=== PATIENT | female | born 1990 | race Caucasian/White ===

== ENCOUNTER 2017-02-24 14:12 | Emergency (ER) | payer BC ==
[~2017-02-24] VITALS: Ht 170.2 cm; Wt 69.5 kg
[2017-02-24 14:17] VITALS: TEMP 36.7; Ht 170.2 cm; Wt 69.5 kg
--- NOTE | 2017-02-24 14:37 | EMERGENCY ROOM VISIT NOTE ---
History Report prepared by Shakila: Chaitanya Crowe Under the Supervision of: Dr. Linda uDnn D.O. First contact with patient: 14:21 Chief Complaint: REFERRED BY DOCTOR Stated Complaint: CHEST PAIN, TROUBLE BREATHING, LEFT ARM NUMB History of Present Illness The patient is a 27 year old female who presents to the Emergency Room with complaints of constant left sided chest pain that has been occurring since 0900. She describes the pain as sharp and stabbing and rates her pain as an 8/ 10 in severity. The patient states that she was fine when she woke up until about 0900. She states that she started to experience left sided chest pain, which she denies radiating to her back. The patient states that she then started to experiencing a tingling, weak, and heavy feeling in her left arm. She describes the arm symptoms as "dull". She states that she started to experience shortness of breath, which she states is painful whenever she breathes. The patient states that she went to her PCP who reported that she should report to the ED. The patient admits that she took Tums for her symptoms , but denies any relief of symptoms. She admits to a history of mild acid reflux and states that her current symptoms are not similar to her acid reflux symptom. The patient denies having these symptoms in the past. She admits that she had an interview today at 1430, but denies feeling stressed or anxious. The patient reports that she has a history of PCOS and admits to regularly taking control pills. She denies a family history of heart problems. The patient denies any recent travel, cough, cold, flu, fevers, chills, change in severity with position, nausea, dizziness, lightheadedness, edema to her lower extremities, rash, change in bowel movements, and change in urine. Source of History: patient Onset: 0900 this morning Position: chest (left) Symptom Intensity: 8/10 Quality: sharp, stabbing Timing: constant Associated Symptoms: + SOB, + weakness, + numbness, No fevers, No chills, No cough, No nausea, No back pain, No urinary symptoms, No rash Review of Systems See HPI for pertinent positives & negatives. A total of 10 systems reviewed and were otherwise negative. Past Medical & Surgical Medical Problems: (1) Acid reflux (2) PCOS (polycystic ovarian syndrome) Family History PCOS Social History Smoking Status: Never Smoker Housing Status: lives with significant other Occupation Status: employed Current/Historical Medications Scheduled Control Pills ( Control Pills), 1 TAB PO DAILY Allergies Coded Allergies: [place] (Unverified Allergy, Unknown, THROAT CLOSING, 02/24/17) Physical Exam Vital Signs Date Time Temp Pulse Resp B/P (MAP) Pulse Ox O2 Delivery O2 Flow Rate FiO2 02/24/17 17:22 79 125/75 98 02/24/17 16:22 96 153/98 100 02/24/17 14:30 95 02/24/17 14:17 36.7 88 20 148/95 100 Room Air Physical Exam GENERAL: alert, well appearing, well nourished, no distress, non-toxic EYE EXAM: normal conjunctiva, PERRL and EOM's grossly intact OROPHARYNX: no exudate, no erythema, lips, buccal mucosa, and tongue normal and mucous membranes are moist NECK: supple, no nuchal rigidity, no adenopathy, non-tender LUNGS: Clear to auscultation. Normal chest wall mechanics CHEST: Reproducible left chest wall tenderness. HEART: Tachycardic. no murmurs, S1 normal and S2 normal ABDOMEN: abdomen soft, non-tender, normo-active bowel sounds, no masses, no rebound or guarding. BACK: Back is symmetrical on inspection and there is no deformity, no midline tenderness, no CVA tenderness. SKIN: no rashes and no bruising UPPER EXTREMITIES: upper extremities are grossly normal. LOWER EXTREMITIES: No pitting edema. NEURO EXAM: Normal sensorium, cranial nerves II-XII grossly intact, normal speech, no gross weakness of arms, no gross weakness of legs. Subjective altered sensation to upper extremities. No ataxia or drift. Equal strength bilaterally. Medical Decision & Procedures ER Provider Diagnostic Interpretation: Radiology results have been interpreted by the radiologist and reviewed by me. CHEST ONE VIEW PORTABLE CLINICAL HISTORY: Chest pain. Dyspnea. COMPARISON STUDY: No previous studies for comparison. FINDINGS: Lung volumes are normal. No pneumothorax or pleural effusion is present. Pulmonary vascularity is normal. Cardiomediastinal silhouette is normal. Apparent left basilar opacity is likely within normal limits. IMPRESSION: No acute cardiopulmonary findings. Electronically signed by: Juan M Gorman M.D. 02/24/2017 3:25 PM Dictated Date/Time: 02/24/2017 3:24 PM Laboratory Results 02/24/17 14:45 Red Blood Count 4.41, Mean Corpuscular Volume 90.9, Mean Corpuscular Hemoglobin 30.8, Mean Corpuscular Hemoglobin Concent 33.9, Mean Platelet Volume 10.3, Neutrophils (%) (Auto) 82.0, Lymphocytes (%) (Auto) 12.6, Monocytes (%) (Auto) 4.4, Eosinophils (%) (Auto) 0.6, Basophils (%) (Auto) 0.2, Neutrophils # (Auto) 7.57, Lymphocytes # (Auto) 1.17, Monocytes # (Auto) 0.41, Eosinophils # (Auto) 0.06, Basophils # (Auto) 0.02 02/24/17 14:45 Test 02/24/17 14:45 White Blood Count 9.25 K/uL (4.8-10.8) Red Blood Count 4.41 M/uL (4.2-5.4) Hemoglobin 13.6 g/dL (12.0-16.0) Hematocrit 40.1 % (37-47) Mean Corpuscular Volume 90.9 fL (80-100) Mean Corpuscular Hemoglobin 30.8 pg (25-34) Mean Corpuscular Hemoglobin Concent 33.9 g/dl (32-36) Platelet Count 205 K/uL (130-400) Mean Platelet Volume 10.3 fL (7.4-10.4) Neutrophils (%) (Auto) 82.0 % Lymphocytes (%) (Auto) 12.6 % Monocytes (%) (Auto) 4.4 % Eosinophils (%) (Auto) 0.6 % Basophils (%) (Auto) 0.2 % Neutrophils # (Auto) 7.57 K/uL (1.4-6.5) Lymphocytes # (Auto) 1.17 K/uL (1.2-3.4) Monocytes # (Auto) 0.41 K/uL (0.11-0.59) Eosinophils # (Auto) 0.06 K/uL (0-0.5) Basophils # (Auto) 0.02 K/uL (0-0.2) RDW Standard Deviation 41.1 fL (36.4-46.3) RDW Coefficient of Variation 12.3 % (11.5-14.5) Immature Granulocyte % (Auto) 0.2 % Immature Granulocyte # (Auto) 0.02 K/uL (0.00-0.02) Prothrombin Time 11.0 SECONDS (9.0-12.0) Prothromb Time International Ratio 1.0 (0.9-1.1) D-Dimer < 190 ug/L FEU (0-500) Anion Gap 8.0 mmol/L (3-11) Est Creatinine Clear Calc Drug Dose 104.6 ml/min Estimated GFR () 118.8 Estimated GFR (Non- 102.5 BUN/Creatinine Ratio 13.6 (10-20) Calcium Level 9.2 mg/dl (8.5-10.1) Magnesium Level 2.0 mg/dl (1.8-2.4) Total Bilirubin 0.3 mg/dl (0.2-1) Aspartate Amino Transf (AST/SGOT) 14 U/L (15-37) Alanine Aminotransferase (ALT/SGPT) 17 U/L (12-78) Alkaline Phosphatase 55 U/L (45-117) Troponin I < 0.015 ng/ml (0-0.045) Total Protein 7.4 gm/dl (6.4-8.2) Albumin 4.0 gm/dl (3.4-5.0) Globulin 3.4 gm/dl (2.5-4.0) Albumin/Globulin Ratio 1.2 (0.9-2) Human Chorionic Gonadotropin, Qual NEG (NEG) Laboratory results per my review. Medications Administered Medications (Trade) Dose Ordered Sig/Donovan Route Start Time Stop Time Status Last Admin Dose Admin Ketorolac Tromethamine (Toradol Inj) 30 mg NOW STAT IV 02/24/17 15:54 02/24/17 15:55 DC 02/24/17 16:21 30 MG Al Hydroxide/Mg Hydroxide (Maalox Susp) 30 ml NOW STAT PO 02/24/17 15:54 02/24/17 15:55 DC 02/24/17 16:20 30 ML ECG Indication: chest pain Rate (beats per minute): 81 Rhythm: normal sinus Findings: no acute ischemic change, no ectopy, other (Normal axis and interval) Comparison ECG Date: previous outpatient EKG earlier today Change: no significant change ED Course 1423: The patient was evaluated in room C05. A complete history and physical exam was performed. 1548: I reevaluated the patient and she is feeling slightly better. 1554: Ordered Maalox Susp 30 ml PO, Toradol Injection 30 [place]. [address]: Upon reevaluation, the patient is feeling better. I discussed the findings and the treatment plan with the patient. She verbalizes agreement and understanding. The patient was discharged home. Medical Decision Differential diagnoses includes but is not limited to acute coronary syndrome, myocardial infarction, pericarditis, pulmonary embolus, aortic dissection, pneumonia, pneumothorax, musculoskeletal, shingles, perforation, esophageal. Heart score 0 Patient well-appearing here and admits to recent increased stress she is due to get next month. Patient symptoms markedly improved with Maalox and Toradol. Labs and imaging unremarkable. Patient with no focal neuro deficits to suggest nerve etiology for subjective arm findings. Discussed with patient more likely symptoms related to anxiety, GI etiology, musculoskeletal origin. The symptoms to suggest occult respiratory illness. Doubt acs, tamponade, effusion, occult infectious process, SVC syndrome, CVA or dissection, pneumothorax. Discussed with patient follow-up with family doctor, symptoms to watch and return for, she verbalized understanding was agreeable with plan. Medication Reconcilliation Current Medication List: was personally reviewed by me Blood Pressure Screening Patient's blood pressure: Elevated blood pressure Blood pressure disposition: Referred to PCP Impression Primary Impression: Chest pain Scribe Attestation The scribe's documentation has been prepared under my direction and personally reviewed by me in its entirety. I confirm that the note above accurately reflects all work, treatment, procedures, and medical decision making performed by me. Departure Information Dispostion Home / Self-Care Referrals No Doctor, Assigned (PCP) Forms HOME CARE DOCUMENTATION FORM, IMPORTANT VISIT INFORMATION, WORK / SCHOOL INSTRUCTIONS Patient Instructions My [facility] Additional Instructions Please follow up with your family doctor. If you have any recurrent or worsening symptoms please return the emergency room. Please continue regular medications as prescribed, you may eat and drink normally, continue regular activities. Problem Qualifiers Primary Impression: Chest pain Chest pain type: unspecified Qualified Codes: R07.9 - Chest pain, unspecified
[2017-02-24 15:01] LABS: BASO % 0.2 %; BASO ABS # 0.02 K/uL (0-0.2); COMPLETE YES; EOS % 0.6 %; HEMATOCRIT 40.1 % (37-47); IG% 0.2 %; LYMPH % 12.6 %; LYMPH ABS # 1.17 K/uL (1.2-3.4); MEAN CELL VOLUME 90.9 fL (80-100); MEAN CORPUSCULAR HEMOGLOBIN 30.8 pg (25-34); MEAN CORPUSCULAR HGB CONC 33.9 g/dl (32-36); MEAN PLATELET VOLUME 10.3 fL (7.4-10.4); MONO % 4.4 %; PLATELET COUNT 205 K/uL (130-400); RED BLOOD COUNT 4.41 M/uL (4.2-5.4); WHITE BLOOD COUNT 9.25 K/uL (4.8-10.8)
[2017-02-24 15:22] LABS: ALT/SGPT 17 U/L (12-78); BLOOD UREA NITROGEN 11 mg/dl (7-18); BUN/CREATININE RATIO 13.6 (10-20); CALCIUM 9.2 mg/dl (8.5-10.1); CARBON DIOXIDE 28 mmol/L (21-32); CHLORIDE 103 mmol/L (98-107); GLUCOSE 101 mg/dl (70-99); POTASSIUM 3.5 mmol/L (3.5-5.1); PREG INTERNAL NEGATIVE QC NEG CLEAR BACKGROUND; PREG INTERNAL POSITIVE QC POS CONTROL LINE; SODIUM 139 mmol/L (136-145)
[2017-02-24] MEDS ORDERED: BCPILLS PO (15:24)
--- NOTE | 2017-02-24 15:26 | DIAGNOSTIC IMAGING REPORT ---
CHEST ONE VIEW PORTABLE CLINICAL HISTORY: Chest pain. Dyspnea. COMPARISON STUDY: No previous studies for comparison. FINDINGS: Lung volumes are normal. No pneumothorax or pleural effusion is present. Pulmonary vascularity is normal. Cardiomediastinal silhouette is normal. Apparent left basilar opacity is likely within normal limits. IMPRESSION: No acute cardiopulmonary findings. Electronically signed by: Juan M Gorman M.D. 02/24/2017 3:25 PM Dictated Date/Time: 02/24/2017 3:24 PM
[2017-02-24 15:27] LABS: ALB/GLOB RATIO 1.2 (0.9-2); ALKALINE PHOSPHATASE 55 U/L (45-117); AST/SGOT 14 U/L (15-37)
[2017-02-24] MEDS ORDERED: KETOROLAC TROMETHAMINE 30 MG/ML VIAL IV STA (15:54)
[2017-02-24] MEDS ORDERED: ALUMINUM/MAGNESIUM SUSP 30 ML UDC PO STA (15:54)
[2017-02-24 17:22] VITALS: BP 125/75; PULSE 79; O2SAT 98
== END 2017-02-24 17:23 | disposition home or self-care (01) ==
LOC: C.EDB 14:14 → C.EDC 17:23
DX: R07.9 Chest pain, unspecified (principal); K21.9 Gastro-esophageal reflux disease without esophagitis; E28.2 Polycystic ovarian syndrome; Z91.018 Allergy to other foods